=== PATIENT | female | born 1950 ===

== ENCOUNTER 2023-03-29 06:30 | Day surgery (SDC) | payer OTHER ==
[~2023-03-29] VITALS: Ht 154.9 cm; Wt 67.1 kg
[~2023-03-29 06:30] MED LIST: AMITRIPTYLINE H25 MG PO; ATORVASTATIN CA10 MG PO; LOSARTAN-HCTZ1 EAC1 PO; MELATONIN3 M1 PO; TOPROL XL25 M1 PO; ZANAFLEX4 M1 PO
== END 2023-03-29 16:00 | disposition home or self-care (01) ==
LOC: CIR.AMB 06:30
PROVIDERS: ATTEND Surgery
DX: D05.12 Intraductal carcinoma in situ of left breast (principal); Z20.822 Contact with and (suspected) exposure to COVID-19; I10 Essential (primary) hypertension; E78.5 Hyperlipidemia, unspecified
CPT/HCPCS: 19301; 19281; L8699